=== PATIENT | male | born 1975 | race Caucasian/White ===

== ENCOUNTER 2017-10-06 18:06 | Emergency (ER) | payer OTHER ==
[~2017-10-06] VITALS: Ht 175.3 cm; Wt 90.7 kg
[~2017-10-06 18:06] MED LIST: CORTISPORIN OTI10 M2 OT
[2017-10-06 18:39] VITALS: BP 131/84
[2017-10-06 20:56] LABS: HIV-1 P24 AG Nonreactive (Nonreactive)
[2017-10-07 05:07] LABS: HEP B SURFACE Ab(ANTI-HBS Non Reactive (()); HEPATITIS C VIRUS AB <0.1 (0.0-0.9)
== END 2017-10-06 20:03 | disposition home or self-care (01) ==
LOC: ER 18:06
PROVIDERS: Physician Assistant
DX: A53.9 Syphilis, unspecified (principal); F17.210 Nicotine dependence, cigarettes, uncomplicated; Z88.2 Allergy status to sulfonamides